=== PATIENT | male | born 1995 | race Native Hawaiian/Other Pacific Islander ===

== ENCOUNTER 2020-05-09 16:55 | Outpatient (CLI) | payer OTHER | END 2020-05-09 19:54 | disposition home or self-care (01) | LOC: RAD 16:55 | DX: M54.5 Low back pain (principal) ==

== ENCOUNTER 2022-12-12 10:08 | Outpatient (CLI) | payer OTHER | END 2022-12-12 22:52 | disposition home or self-care (01) | LOC: RAD 10:08 | PROVIDERS: ATTEND Internal Medicine | DX: M72.2 Plantar fascial fibromatosis (principal) ==